=== PATIENT | male | born 1965 | race Caucasian/White ===

== ENCOUNTER 2017-02-21 11:51 | Emergency (ER) | payer MEDICAID, OTHER ==
[2017-02-21 12:00] VITALS: RESP 16
--- NOTE | 2017-02-21 12:17 | EDPHY ---
H & P Stated Complaint: LUQ pain x one month Time Seen by Provider: 02/21/17 12:01 HPI/ROS: CHIEF COMPLAINT: Left upper quadrant pain x1 month HISTORY OF PRESENT ILLNESS: 51-year-old male with no prior history of abdominal surgery, no history of chronic abdominal pathology complaining of postprandial left upper quadrant pain x1 month. The pain last occurred this morning after he had breakfast consisting of a bowl raised brain cereal and 2 Snickers bars. At no point either today or recently has he experienced: Nausea , vomiting, melena, hematochezia, constipation, diarrhea, fever, back or flank pain, urinary abnormality, testicular pain, trauma, rash, vesicles. PRIMARY CARE PROVIDER: no PCP REVIEW OF SYSTEMS: A ten point review of systems was performed and is negative with the exception of the items mentioned in the HPI PAST MEDICAL & SURGICAL HISTORY: no history of abdominal surgeries or chronic abdominal pathology SOCIAL HISTORY: no history of chronic alcohol or drug use PHYSICAL EXAM (Prior to examination, patient consented to physical exam, hands were washed and my usual and customary physical exam procedures followed) 1) GENERAL: Well-developed, well-nourished, alert and oriented. Appears to be in no acute distress. Smiling, appears well 2) HEAD: Normocephalic, atraumatic 3) HEENT: Pupils equal, round, reactive to light bilaterally. Sclera anicteric. Nasopharynx, oropharynx, clear, no lesions. Moist mucous membrane 4) NECK: Full range of motion, no meningeal signs. 5) LUNGS: Clear auscultation bilaterally, no wheezes, no rhonchi, no retractions. 6) HEART: Regular rate and rhythm, no murmur, no heave, no gallop. 7) ABDOMEN: No guarding, no rebound, no focal tenderness, negative McBurney's, negative Canales's, negative Rovsing's, negative peritoneal sign, I am unable to elicit any abdominal pain on exam. No splenomegaly. 8) MUSCULOSKELETAL: Moving all extremities, no focal areas of tenderness, no obvious trauma. No peripheral edema or discoloration. 9) BACK: No CVA tenderness, no midline vertebral tenderness, no fluctuance, no step-off, no obvious trauma, no visual or palpable abnormality. 10) SKIN: No rash, no petechiae. 11) Psychiatric: Patient is oriented X 3, there is no agitation. DIFFERENTIAL DIAGNOSIS: My differential diagnosis includes, but is not limited to, acute appendicitis, acute cholecystitis, bowel obstruction, acute pancreatitis, testicular torsion, gastritis , splenomegaly The patient understands that this diagnosis is provisional and can never be 100% accurate. This is a partial list of diagnoses considered. These considerations are based on history, physical exam, past history and reassessment. - Personal History Current Tetanus/Diphtheria Vaccine: Unsure Current Tetanus Diphtheria and Acellular Pertussis (TDAP): Unsure - Medical/Surgical History Hx Asthma: No Hx Chronic Respiratory Disease: No Hx Diabetes: No Hx Cardiac Disease: No Hx Renal Disease: No Hx Cirrhosis: No Hx Alcoholism: No Hx HIV/AIDS: No Hx Splenectomy or Spleen Trauma: No Other PMH: Denies - Social History Smoking Status: Current every day smoker Constitutional: Initial Vital Signs Temperature (C) 36.2 C 02/21/17 11:52 Heart Rate 84 02/21/17 11:52 Respiratory Rate 16 02/21/17 11:52 Blood Pressure 105/84 H 02/21/17 11:52 O2 Sat (%) 98 02/21/17 11:52 O2 Delivery Mode Room Air Allergies/Adverse Reactions: No Known Allergies Allergy (Verified 06/12/12 22:06) Home Medications: Medication Instructions Recorded Miscellaneous Medical Supply [NO 1 ea [facility] [place]12 [place] MEDS] Medical Decision Making - Diagnostics Imaging Results: Imaging Impressions Abdomen CT 02/21/17 12:29 Impression: 1. Large calculus in the left renal pelvis resulting in minimal to mild left pelvocaliectasis. Minimal inflammation along the proximal left ureter, just downstream from the calculus, suggesting the calculus may be migrating to and fro within the proximal ureter and renal pelvis. 2. Left nephrolithiasis. 3. Constipation. No bowel obstruction. Normal appendix. Findings discussed with Emergency Department physician's nurseryman assistant, Natalia Larsen, at 1322 hours 02/21/2017. Images reviewed myself - Data Points Laboratory Results: Laboratory Results 02/21/17 12:23 02/21/17 12:23 02/21/17 02/21/17 02/21/17 12:24 12:23 12:23 WBC RBC Hgb POC Hgb 16.7 gm/dL gm/dL (13.7-17.5) Hct POC Hct 49 % % (40-51) MCV MCH MCHC RDW Plt Count MPV Neut % (Auto) Lymph % (Auto) [place] % (Auto) Eos % (Auto) Baso % (Auto) Nucleat RBC Rel Count Absolute Neuts (auto) Absolute Lymphs (auto) Absolute Monos (auto) Absolute Eos (auto) Absolute Basos (auto) Absolute Nucleated RBC Immature Gran % Immature Gran # POC Sodium 140 mEq/L mEq/L (134-144) Sodium 140 mEq/L mEq/L (134-144) POC Potassium 5.0 mEq/L mEq/L (3.3-5.0) Potassium 4.9 mEq/L mEq/L (3.5-5.2) POC Chloride 102 mEq/L mEq/L (97-110) Chloride 102 mEq/L mEq/L (97-110) Carbon Dioxide 28 mEq/l mEq/l (22-31) Anion Gap 10 mEq/L mEq/L (8-16) POC BUN 19 mg/dL mg/dL (7-23) BUN 18 mg/dL mg/dL (7-23) Creatinine 0.8 mg/dL mg/dL (0.7-1.3) POC Creatinine 0.9 mg/dL mg/dL (0.7-1.3) Estimated GFR > 60 Glucose 90 mg/dL mg/dL (70-100) POC Glucose 96 mg/dL mg/dL (70-100) Calcium 9.5 mg/dL mg/dL (8.5-10.4) Total Bilirubin 0.3 mg/dL mg/dL (0.1-1.4) Conjugated Bilirubin 0.2 mg/dL mg/dL (0.0-0.5) Unconjugated Bilirubin 0.1 mg/dL mg/dL (0.0-1.1) AST 28 IU/L IU/L (17-59) ALT 43 IU/L IU/L (21-72) Alkaline Phosphatase 71 IU/L IU/L (38-126) Total Protein 7.1 g/dL g/dL (6.3-8.2) Albumin 4.2 g/dL g/dL (3.5-5.0) Lipase 485 IU/L H IU/L (23-300) Urine Color YELLOW Urine Appearance HAZY Urine pH 5.0 (5.0-7.5) Ur Specific [place] 1.020 (1.002-1.030) Urine Protein 1+ H (NEGATIVE) Urine Ketones NEGATIVE (NEGATIVE) Urine Blood 2+ H (NEGATIVE) Urine Nitrate NEGATIVE (NEGATIVE) Urine Bilirubin NEGATIVE (NEGATIVE) Urine Urobilinogen NEGATIVE EU EU (0.2-1.0) Ur Leukocyte Esterase TRACE H (NEGATIVE) Urine RBC 10-15 /hpf H /hpf (0-3) Urine WBC 10-15 /hpf H /hpf (0-3) Ur Epithelial Cells NONE SEEN /lpf /lpf (NONE-1+) Urine Mucus TRACE /lpf /lpf (NONE-1+) Urine Glucose NEGATIVE (NEGATIVE) 02/21/17 12:23 WBC 9.09 10^3/uL 10^3/uL (3.80-9.50) RBC 4.96 10^6/uL 10^6/uL (4.40-6.38) Hgb 16.0 g/dL g/dL (13.7-17.5) POC Hgb Hct 46.4 % % (40.0-51.0) POC Hct MCV 93.5 fL fL (81.5-99.8) MCH 32.3 pg pg (27.9-34.1) MCHC 34.5 g/dL g/dL (32.4-36.7) RDW 11.6 % % (11.5-15.2) Plt Count 240 10^3/uL 10^3/uL (150-400) MPV 9.1 fL fL (8.7-11.7) Neut % (Auto) 59.0 % % (39.3-74.2) Lymph % (Auto) 30.3 % % (15.0-45.0) [place] % (Auto) 7.4 % % (4.5-13.0) Eos % (Auto) 2.1 % % (0.6-7.6) Baso % (Auto) 0.8 % % (0.3-1.7) Nucleat RBC Rel Count 0.0 % % (0.0-0.2) Absolute Neuts (auto) 5.37 10^3/uL 10^3/uL (1.70-6.50) Absolute Lymphs (auto) 2.75 10^3/uL 10^3/uL (1.00-3.00) Absolute Monos (auto) 0.67 10^3/uL 10^3/uL (0.30-0.80) Absolute Eos (auto) 0.19 10^3/uL 10^3/uL (0.03-0.40) Absolute Basos (auto) 0.07 10^3/uL 10^3/uL (0.02-0.10) Absolute Nucleated RBC 0.00 10^3/uL 10^3/uL (0-0.01) Immature Gran % 0.4 % % (0.0-1.1) Immature Gran # 0.04 10^3/uL 10^3/uL (0.00-0.10) POC Sodium Sodium POC Potassium Potassium POC Chloride Chloride Carbon Dioxide Anion Gap POC BUN BUN Creatinine POC Creatinine Estimated GFR Glucose POC Glucose Calcium Total Bilirubin Conjugated Bilirubin Unconjugated Bilirubin AST ALT Alkaline Phosphatase Total Protein Albumin Lipase Urine Color Urine Appearance Urine pH Ur Specific [place] Urine Protein Urine Ketones Urine Blood Urine Nitrate Urine Bilirubin Urine Urobilinogen Ur Leukocyte Esterase Urine RBC Urine WBC Ur Epithelial Cells Urine Mucus Urine Glucose Point of Care Test Results: 02/21/17 12:24 POC Sodium 140 POC Potassium 5.0 POC Chloride 102 POC BUN 19 POC Creatinine 0.9 POC Glucose 96 Departure - Departure Disposition: Home, Routine, Self-Care Clinical Impression: Kidney stone on left side Abdominal pain Qualifiers: Abdominal location: left upper quadrant Qualified Code(s): R10.12 - Left upper quadrant pain Constipation Qualifiers: Constipation type: unspecified constipation type Qualified Code(s): K59.00 - Constipation, unspecified Condition: Good Instructions: Constipation (ED), Kidney Stones (ED), High Fiber Diet (ED), Acute Abdominal Pain (ED) Additional Instructions: Seek immediate medical attention if you develop new or worsening symptoms, if you develop fevers, chills, inability to tolerate oral intake or any other symptoms that concerns you. Referrals: Mono Suazo MD [Medical Doctor] - 2-3 days without fail Stand Alone Forms: Work Excuse
[2017-02-21] MEDS ORDERED: IOPAMIDOL (ISOVUE-300) 100 ML BTL ONE (12:37)
[2017-02-21 12:49] LABS: % IMMATURE GRANULYOCYTES 0.4 % (0.0-1.1); ABSOLUTE IMMATURE GRANULOCYTES 0.04 10^3/uL (0.00-0.10); ADD DIFF? NO; ADD MORPH? NO; ADD SCAN? NO; ATYPICAL LYMPHOCYTE FLAG 10 (0-99); FRAGMENT RBC FLAG 0 (0-99); HEMATOCRIT 46.4 % (40.0-51.0); LEFT SHIFT FLG 0 (0-99); LIPEMIA HEMOLYSIS FLAG 90 (0-99); MEAN CELL HEMOGLOBIN 32.3 pg (27.9-34.1); MEAN CELL HEMOGLOBIN CONCENTR. 34.5 g/dL (32.4-36.7); MEAN CELL VOLUME 93.5 fL (81.5-99.8); MEAN PLATELET VOLUME 9.1 fL (8.7-11.7); PLATELET CLUMPS FLAG 0 (0-99); PLATELET COUNT 240 10^3/uL (150-400); RED BLOOD CELL COUNT 4.96 10^6/uL (4.40-6.38); RED CELL DISTRIBUTION WIDTH 11.6 % (11.5-15.2)
[2017-02-21 12:55] LABS: COLOR YELLOW; LEUKOCYTE ESTERASE,URINE TRACE (NEGATIVE); NITRITE,URINE NEGATIVE (NEGATIVE)
[2017-02-21 13:02] LABS: MUCUS TRACE /lpf (NONE-1+)
[2017-02-21 13:05] LABS: ALANINE AMINOTRANSFERASE 43 IU/L (21-72); ALBUMIN 4.2 g/dL (3.5-5.0); ALKALINE PHOSPHATASE 71 IU/L (38-126); ANION GAP 10 mEq/L (8-16); ASPARTATE AMINOTRANSFERASE 28 IU/L (17-59); BILIRUBIN,TOTAL 0.3 mg/dL (0.1-1.4); BILIRUBIN-CONJUGATED 0.2 mg/dL (0.0-0.5); BILIRUBIN-UNCONJUGATED 0.1 mg/dL (0.0-1.1); CALCIUM 9.5 mg/dL (8.5-10.4); CARBON DIOXIDE 28 mEq/l (22-31); CHLORIDE 102 mEq/L (97-110); CREATININE 0.8 mg/dL (0.7-1.3); GLOMERULAR FILTRATION RATE > 60; GLUCOSE 90 mg/dL (70-100); POTASSIUM 4.9 mEq/L (3.5-5.2); SODIUM 140 mEq/L (134-144); TOTAL PROTEIN 7.1 g/dL (6.3-8.2)
[2017-02-21 14:20] VITALS: BP 142/90; PULSE 79; TEMP 98.1; O2SAT 95
== END 2017-02-21 14:20 | disposition home or self-care (01) ==
DX: N20.0 Calculus of kidney (principal); K59.00 Constipation, unspecified; F17.200 Nicotine dependence, unspecified, uncomplicated
CPT/HCPCS: 82947-QW; Q9967

== ENCOUNTER 2017-07-18 22:46 | Emergency (ER) | payer MEDICAID ==
[2017-07-18 22:51] VITALS: RESP 16; TEMP 98.1
--- NOTE | 2017-07-18 23:28 | EDPHY ---
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 The patient required restraints. Patient is complaining of some low back pain, neck pain, pain in his right leg. Denies chest pain or difficulty breathing. Denies abdominal pain. Denies visual changes. Denies injury to the upper extremities. REVIEW OF SYSTEMS: Constitutional: No fever, no chills. Eyes: No double or blurry vision. ENT: No sore throat. Respiratory: No cough, no shortness of breath. Cardiac: No chest pain. Gastrointestinal: No abdominal pain, vomiting or diarrhea. Genitourinary: No dysuria. Musculoskeletal: Neck and back pain Skin: No rashes. Neurological: No headache. Past Medical/Surgical History: Negative Social History: Currently in custody of prison Smoking Status: Current every day smoker Physical Exam: General Appearance: Alert, no distress. Eyes: Pupils equal and round. Extraocular motions are all intact. ENT: Mouth: Mucous membranes moist. Dried blood noted is noted in the patient' s mouth with no dental injury or malocclusion. No evidence of laceration. Respiratory: No wheezing, rhonchi, or rales, lungs are clear to auscultation. Cardiovascular: Regular rate and rhythm. Gastrointestinal: Abdomen is soft and nontender, no masses, no rebound or guarding, bowel sounds normal. Neurological: Alert and oriented x 3, cranial nerves II through XII grossly intact Skin: Warm and dry, no rashes. Musculoskeletal: Nontender to palpate along the cervical, thoracic or lumbar spine. Neck is supple. Extremities: Full range of motion and no peripheral edema. Patient is able to ambulate. Psychiatric: Patient is oriented X 3, there is no agitation. Constitutional: Initial Vital Signs Temperature (C) 36.7 C 07/18/17 22:49 Heart Rate 97 07/18/17 22:49 Respiratory Rate 16 07/18/17 22:49 Blood Pressure 155/107 H 07/18/17 22:49 O2 Sat (%) 100 07/18/17 22:49 O2 Delivery Mode Room Air Allergies/Adverse Reactions: No Known Allergies Allergy (Verified 07/18/17 22:48) Home Medications: Medication Instructions Recorded NK [No Known Home Meds] 07/18/17 Medical Decision Making ED Course/Re-evaluation: 52-year-old male presents for medical clearance for prison. The patient is able to ambulate. He has some dried blood noted in his mouth however no obvious dental injury or malocclusion. No suturable lacerations. No abrasions or lacerations anywhere that I can see in his mouth. Otherwise no other signs of trauma to his head. He is able to ambulate unassisted. Differential Diagnosis: Including but not limited to continue, fracture, dislocation, abrasion Departure - Departure Disposition: Law Enforcement/Court/Care Home Clinical Impression: Medically cleared for prison Condition: Good Instructions: Contusion in Adults (ED) Additional Instructions: Medically cleared for prison.
[2017-07-18 23:35] VITALS: BP 113/74; PULSE 74; O2SAT 99
== END 2017-07-18 23:35 ==
DX: M54.5 Low back pain (principal); M54.2 Cervicalgia; F17.200 Nicotine dependence, unspecified, uncomplicated

== ENCOUNTER → 2017-07-23 | Outpatient (CLI) | payer MEDICAID | LOC: FIMAGING 15:38 → EDSTATUS 15:39 | DX: M54.2 Cervicalgia (principal) ==

== ENCOUNTER → 2017-10-01 | Outpatient (CLI) | payer MEDICAID | LOC: FIMAGING 15:23 → EDSTATUS 15:24 | PROVIDERS: ATTEND Family Medicine | DX: M25.511 Pain in right shoulder (principal) ==

== ENCOUNTER 2017-11-04 08:09 | Emergency (ER) | payer MEDICAID ==
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
[2017-11-04 11:48] VITALS: BP 141/106
== END 2017-11-04 11:46 | disposition home or self-care (01) ==
DX: M50.30 Other cervical disc degeneration, unspecified cervical region (principal); F17.200 Nicotine dependence, unspecified, uncomplicated

== ENCOUNTER → 2018-09-03 | Outpatient (CLI) | payer MEDICAID | LOC: FIMAGING 19:01 | PROVIDERS: ATTEND Family Medicine | DX: M75.111 Incomplete rotator cuff tear or rupture of right shoulder, not specified as traumatic (principal); M66.821 Spontaneous rupture of other tendons, right upper arm; M24.811 Other specific joint derangements of right shoulder, not elsewhere classified; M50.01 Cervical disc disorder with myelopathy, high cervical region ==